=== PATIENT | male | born 1960 | race Caucasian/White ===

== ENCOUNTER → 2022-09-26 | Emergency (ER) | payer BC, OTHER ==
[~2022-09-26] MED LIST: Amiodarone 150 MG/3 ML VIAL ONE; Amiodarone In Dextrose 0 ML ONE
[2022-09-26 10:34] LABS: #Basophils 0.1 10x3/uL (0.0-0.2); #Eosinphils 0.1 10x3/uL (0.0-0.5); #Monocytes 0.7 10x3/uL (0.0-1.1); #Neutrophils 6.5 10x3/uL (1.5-8.4); %Basophils 0.5 % (0.0-2.0); %Eosinophils 0.5 % (0.0-6.0); %Lymphocytes 20.1 % (18.0-47.0); %Monocytes 7.5 % (0.0-10.0); Hemoglobin 16.3 g/dL (13.5-17.5); Mean Corpuscular HGB CONC 32.5 g/dL (32.0-36.0); Mean Corpuscular Hemoglobin 28.7 pg (27.0-33.0); Mean Corpuscular Volume 88.2 fl (81.2-95.1); Platelet Count 294 10x3/uL (150-450); Red Blood Cell (RBC) Count 5.68 10x6/uL (4.32-5.72); White Blood Cell (WBC) Count 9.1 10x3/uL (3.5-10.5)
[2022-09-26 10:50] LABS: INR-International Normal Ratio 1.1; PTT 33.5 sec (22.0-33.0); Prothrombin Time 12.3 sec (9.5-12.1)
[2022-09-26 11:13] LABS: Magnesium 2.1 mg/dL (1.6-2.6)
[2022-09-26 11:14] LABS: ALT (SGPT) 31 U/L (8-55); AST (SGOT) 28 U/L (5-34); Albumin 4.6 g/dL (3.5-5.0); Alkaline Phosphatase 95 U/L (40-110); Anion Gap 14 mmol/L (10-20); BUN (Urea Nitrogen) 13 mg/dL (8.4-25.7); Calc. Creatinine Clearance 0 mL/min (70-130); Calcium 9.6 mg/dL (7.8-10.44); Carbon Dioxide 26 mmol/L (22-29); Chloride 103 mmol/L (98-107); Estimated GFR 93; Glucose 102 mg/dL (70-105); Lipase 13 U/L (8-78); Potassium 4.2 mmol/L (3.5-5.1); Protein, Total 7.6 g/dL (6.0-8.3); Sodium 139 mmol/L (136-145)
[2022-09-26 12:19] LABS: SARS-CoV-2 NAA Rapid Test Not Detected (NotDetected)
== END ==
LOC: CSHERS 10:05
DX: I47.20 Ventricular tachycardia, unspecified (principal); I48.91 Unspecified atrial fibrillation; Z20.822 Contact with and (suspected) exposure to COVID-19; Z79.01 Long term (current) use of anticoagulants
CPT/HCPCS: 71045; 80053; 83605; 83690; 83735; 84443; 84484; 85025; 85610; 85730; 93005; 96360; J0282; J0283; U0002